=== PATIENT | male | born 1980 | race Caucasian/White ===

== ENCOUNTER 2017-05-11 20:23 | Emergency (ER) | payer SELFPAY ==
[~2017-05-11] VITALS: Ht 188 cm; Wt 100.0 kg
[~2017-05-11 20:23] MED LIST: BLOOD GLUCOSE T1 TES; FLUO20CA12 PO; GABA800T PO; LEVEMIR SQ; LISI10TA3 PO; NOVOLOG; NOVOLOGP2 SQ; PROZ20CA11 PO; REME15TA PO; XANA2TAB2 PO; [UNRECOGNIZED DRUG - CODE] SL; hydroxyzine PO
[2017-05-11 20:53] VITALS: BP 122/67; PULSE 99; RESP 18; TEMP 97.7; O2SAT 99
== END 2017-05-11 22:30 | disposition left against medical advice (07) ==
LOC: MERGE 22:25 → NED 22:25
DX: Z53.21 Procedure and treatment not carried out due to patient leaving prior to being seen by health care provider (principal)
CPT/HCPCS: 99281

== ENCOUNTER 2017-05-13 15:03 | Emergency (ER) | payer SELFPAY ==
[~2017-05-13] VITALS: Ht 188 cm; Wt 102.0 kg
[2017-05-13 15:13] VITALS: BP 116/56; PULSE 96; RESP 16; TEMP 97.9; O2SAT 96
[2017-05-13] MEDS ORDERED: RESP: ALBUTEROL 2.5 MG/IPRATROPIUM 0.5 MG NEB (SCH) NEB ONE (16:00)
[2017-05-13] MEDS ORDERED: PERM5CRE TOPICAL (16:11)
[2017-05-13] MEDS ORDERED: ALBUAER3 INH (16:11)
[2017-05-13] MEDS ORDERED: AZIT250T3 PO (16:11)
[2017-05-13] MEDS ORDERED: PRED20 PO (16:11)
--- NOTE | 2017-05-13 16:11 | PD ---
HPI Chief Complaint: Cold / Flu Symptoms Time Seen by Provider: 15:26 Travel History International Travel<30 days: No Contact w/Intl Traveler<30days: No Traveled to known affect area: No History of Present Illness HPI Patient is a 37-year-old male presents emergency department for evaluation of cough congestion and shortness of breath. Patient states he does not smoke but he VAPES. States he has had bronchitis before. States symptoms for the past week, gradually worsening, not associated with any runny nose fevers nausea or vomiting. Symptoms moderate, gradually worsening, context and associated signs symptoms as above per PFSH Past Medical History ADHD: Yes Arthritis: No Asthma: No Blood Disorders: No Anxiety: Yes Depression: Yes Heart Rhythm Problems: No Cancer: No Cardiovascular Problems: Yes (htn on meds) Chemotherapy: No Chest Pain: No Congestive Heart Failure: No COPD: No Diabetes: Yes (type 1) Patient Takes Glucophage: No Diminished Hearing: No Endocrine: Yes Gastrointestinal Disorders: No Genitourinary: No Headaches: Yes (per pt frequently ) Hepatitis: Yes (C) Hiatal Hernia: No Hypertension: No Immune Disorder: No Implanted Vascular Access Dvce: No Medical other: No Musculoskeletal: No Neurologic: Yes (NEUROPATHY LEGS/ FEET) Psychiatric: Yes ( Major depression chronic recurrent. History of Substance Abuse ) Reproductive: No Respiratory: No Immunizations Current: No Radiation Therapy: No Seizures: No (per pt) Sleep Apnea: No Thyroid Disease: No Past Surgical History Abdominal Surgery: No AICD: No Cardiac Surgery: No Ear Surgery: No Endocrine Surgery: Yes (diabetic) Eye Surgery: Yes (RETNIAL SX) Genitourinary Surgery: No Gynecologic Surgery: No Joint Replacement: No Neurologic Surgery: No Oral Surgery: No Pacemaker: No Thoracic Surgery: No Other Surgery: Yes Social History Alcohol Use: No Tobacco Use: Yes (1/2 PACK/DAY) Substance Use: Yes (HX OF HEROIN, AND POLYSUBSTANCE) Allergies-Medications (Allergen,Severity, Reaction): Coded Allergies: acetaminophen (Unverified Adverse Reaction, Mild, NAUSEA, 05/13/17) 10/27/15 DENIES ALLERGY Uncoded Allergies: NARCOTICS (Adverse Reaction, Unknown, 05/13/17) hx of opoid abuse, IVDU, avoid... Reported Meds & Prescriptions Reported Meds & Active Scripts Active Azithromycin 250 Mg Tab 250 Mg PO DIRECTED Take 2 tabs (500 mg) on day 1 then 1 tab daily x 4 days. Prednisone 20 Mg Tab 60 Mg PO DAILY 5 Days Proair Hfa 8.5 GM Inh (Albuterol Sulfate) 90 Mcg/Act Aer 1 Puff INH Q4H PRN 108 mcg/actuation Permethrin Topical 5% (Permethrin) 5% Cream 1 Applic TOPICAL ONCE Lisinopril 10 Mg Tab 10 Mg PO DAILY Remeron (Mirtazapine) 15 Mg Tab 15 Mg PO HS Fluoxetine (Fluoxetine HCl) 20 Mg Capsule 60 Mg PO DAILY 3 capsules daily [NovoLog] Sliding scale as directed, see history from note November 03, 2016. Levemir Inj (Insulin Detemir) 1,000 unit/ 10 ML Vial 1 Units SQ DIRECTED 15 Days 18 units SQ qAM and 22 units SQ qHS. Gabapentin 800 Mg Tab 800 Mg PO QID One four times a day for neuropathy (painful lower extremities) [hydroxyzine] 100 Mg PO TID Blood Glucose Test Strips 1 Jazmin Jazmin 1 Ea .ROUTE DIRECTED Review of Systems Except as stated in HPI: all other systems reviewed are Neg Physical Exam Narrative GENERAL: Well-nourished, well-developed patient. SKIN: Focused skin assessment warm/dry. No scabies lesions seen, no other lesions seen HEAD: Normocephalic. EYES: No scleral icterus. No injection or drainage. ENT, TMs clear bilaterally, oropharynx clear moist NECK: Supple, trachea midline. No JVD or lymphadenopathy. CARDIOVASCULAR: Regular rate and rhythm without murmurs, gallops, or rubs. RESPIRATORY: Breath sounds equal bilaterally. No accessory muscle use. There are coarse breath sounds on expiration rhonchi and wheezes consistent with bronchitis. Good aeration bilaterally, no increased work of breathing peer GASTROINTESTINAL: Abdomen soft, non-tender, nondistended. MUSCULOSKELETAL: No cyanosis, or edema. BACK: Nontender without obvious deformity. No CVA tenderness. Data Data Last Documented VS Vital Signs Date Time Temp Pulse Resp B/P (MAP) Pulse Ox O2 Delivery O2 Flow Rate FiO2 05/13/17 15:13 97.9 96 16 116/56 (76) 96 Orders Orders Albuterol-Ipratropium Neb (Duoneb Neb) (05/13/17 16:00) Chest, Pa & Lat (05/13/17 ) Ed Discharge Order (05/13/17 16:52) [facility] Medical Decision Making Medical Screen Exam Complete: Yes Emergency Medical Condition: Yes Differential Diagnosis To be unlikely, bronchitis, pneumonia, scabies unlikely. Narrative Course Patient room to the emergency department, bronchitis by physical exam, chest x- ray negative. He has been in prison recently and as I am leaving the room he also states that he thinks he might have scabies. I have looked at his abdomen chest and between his digits and I do not see any evidence of scabies currently. Still will prescribe permethrin as he seems to be overly concerned with it. After DuoNeb is feeling better. Discussed symptomatically management follow-up with primary care physician and return to ED criteria for Diagnosis Primary Impression: Acute bronchitis Med/Other Pt SpecificInfo: Prescription(s) given Scripts Azithromycin (Azithromycin) 250 Mg Tab 250 MG PO DIRECTED for Infection, #6 TAB 0 Refills Take 2 tabs (500 mg) on day 1 then 1 tab daily x 4 days. Prov: Chalino Starks MD 05/13/17 Prednisone (Prednisone) 20 Mg Tab 60 MG PO DAILY for 5 Days, #15 TAB 0 Refills Prov: Chalino Starks MD 05/13/17 Albuterol 8.5 GM Inh (Proair Hfa 8.5 GM Inh) 90 Mcg/Act Aer 1 PUFF INH Q4H Y for SHORTNESS OF BREATH, #1 INHALER 0 Refills 108 mcg/actuation Prov: Chalino Starks MD 05/13/17 Permethrin Topical 5% (Permethrin Topical 5%) 5% Cream 1 APPLIC TOPICAL ONCE for Scabies, #1 TUBE 0 Refills Prov: Chalino Starks MD 05/13/17 Disposition: 01 DISCHARGE HOME Condition: Stable Chalino Starks MD May 13, 2017 16:11
--- NOTE | 2017-05-13 16:51 | RADRPT ---
EXAM DATE/TIME: 05/13/2017 16:42 [facility] COMPARISON: CHEST SINGLE AP, February 21, 2016, 18:10. INDICATIONS : Cough, short of breath MEDICAL HISTORY : Diabetes mellitus type I. SURGICAL HISTORY : None. ENCOUNTER: Initial ACUITY: 1 week PAIN SCORE: 0/10 LOCATION: Bilateral chest FINDINGS: There is linear density at the left lung base laterally as well as slight obscuration of left heart b order corresponding to lingular scarring and possible lingular airspace disease. CONCLUSION: Lingular scarring is identified. There is also slight silhouetting of the left heart border suggesting lingular airspace disease. Levi Perez MD on May 13, 2017 at 16:47 Board Certified Radiologist. This report was verified electronically.
== END 2017-05-13 17:45 | disposition home or self-care (01) ==
LOC: MERGE 15:03 → PHEFT 15:03
DX: J20.9 Acute bronchitis, unspecified (principal); F17.290 Nicotine dependence, other tobacco product, uncomplicated; I10 Essential (primary) hypertension; B19.20 Unspecified viral hepatitis C without hepatic coma; E10.40 Type 1 diabetes mellitus with diabetic neuropathy, unspecified; Z79.4 Long term (current) use of insulin
CPT/HCPCS: 71046; 94664; 99283